=== PATIENT | female | born 1985 | race Caucasian/White ===

== ENCOUNTER 2019-06-23 18:12 | Outpatient (CLI) | payer OTHER, SELFPAY ==
[2019-06-23 19:34] LABS: Thyroid Stimulating Hormone 2.23 uIU/mL (0.36-3.74)
== END 2019-06-23 18:13 | disposition home or self-care (01) ==
PROVIDERS: PCP Family Medicine; Visit Provider Nurse Practitioner Family
DX: E03.8 Other specified hypothyroidism (principal)
CPT/HCPCS: 36415; 84443

== ENCOUNTER 2019-09-21 16:48 | Outpatient (CLI) | payer OTHER, SELFPAY ==
[2019-09-21 18:14] LABS: Thyroid Stimulating Hormone 1.98 uIU/mL (0.36-3.74)
== END 2019-09-21 16:49 | disposition home or self-care (01) ==
LOC: CHSLAB 16:49
PROVIDERS: PCP Family Medicine; Visit Provider Nurse Practitioner Family
DX: E03.8 Other specified hypothyroidism (principal)
CPT/HCPCS: 36415; 84443

== ENCOUNTER 2019-12-20 18:59 | Outpatient (CLI) | payer OTHER, SELFPAY ==
[2019-12-20 20:49] LABS: Thyroid Stimulating Hormone 1.88 uIU/mL (0.36-3.74)
== END 2019-12-20 19:00 | disposition home or self-care (01) ==
LOC: CHSLAB 19:01
PROVIDERS: PCP Nurse Practitioner Family; Visit Provider Nurse Practitioner Family
DX: E03.9 Hypothyroidism, unspecified (principal)
CPT/HCPCS: 36415; 84443

== ENCOUNTER 2020-03-10 16:23 | Outpatient (CLI) | payer OTHER, SELFPAY ==
[2020-03-10 17:48] LABS: Thyroid Stimulating Hormone Reflex 1.42 u/IU/mL (0.36-3.74)
== END 2020-03-10 16:24 | disposition home or self-care (01) ==
LOC: CHSLAB 16:26
PROVIDERS: PCP Family Medicine; Visit Provider Nurse Practitioner Family
DX: E03.9 Hypothyroidism, unspecified (principal)
CPT/HCPCS: 36415; 84443

== ENCOUNTER 2021-06-14 06:55 | Outpatient (CLI) | payer OTHER, SELFPAY ==
[2021-06-14 07:43] LABS: Beta HCG Quantitative < 1.00 mIU/mL (0-6)
[2021-06-19 05:35] LABS: Progesterone 43.1 ng/mL (***)
== END 2021-06-14 06:56 | disposition home or self-care (01) ==
LOC: CHSLAB 07:00
PROVIDERS: PCP Family Medicine
DX: N91.2 Amenorrhea, unspecified (principal)
CPT/HCPCS: 36415; 84144; 84702

== ENCOUNTER 2021-06-17 06:58 | Outpatient (CLI) | payer OTHER, SELFPAY ==
[2021-06-17 09:25] LABS: Beta HCG Quantitative < 1.00 mIU/mL (0-6)
[2021-06-20 03:57] LABS: Progesterone 37.3 ng/mL (***)
== END 2021-06-17 06:59 | disposition home or self-care (01) ==
PROVIDERS: PCP Family Medicine
DX: N91.2 Amenorrhea, unspecified (principal)
CPT/HCPCS: 36415; 84144; 84702

== ENCOUNTER 2022-05-09 07:01 | Outpatient (CLI) | payer OTHER, SELFPAY ==
[2022-05-15 07:06] LABS: Progesterone 34.5 ng/mL (***)
== END 2022-05-09 07:02 | disposition home or self-care (01) ==
LOC: CHSLAB 07:04
PROVIDERS: PCP Nurse Practitioner Family
DX: N91.2 Amenorrhea, unspecified (principal)
CPT/HCPCS: 36415; 84144; 84702

== ENCOUNTER 2022-05-12 07:02 | Outpatient (CLI) | payer OTHER, SELFPAY ==
[2022-05-15 22:17] LABS: Progesterone 31.8 ng/mL (***)
== END 2022-05-12 07:03 | disposition home or self-care (01) ==
LOC: CHSLAB 07:05
PROVIDERS: PCP Nurse Practitioner Family
DX: N91.2 Amenorrhea, unspecified (principal)
CPT/HCPCS: 36415; 84144; 84702

== ENCOUNTER 2022-05-14 07:05 | Outpatient (CLI) | payer OTHER, SELFPAY ==
[2022-05-18 06:14] LABS: Progesterone 36.2 ng/mL (***)
== END 2022-05-14 07:06 | disposition home or self-care (01) ==
PROVIDERS: PCP Nurse Practitioner Family
DX: N91.2 Amenorrhea, unspecified (principal)
CPT/HCPCS: 36415; 84144; 84702

== ENCOUNTER 2023-01-26 09:01 | Outpatient (RCR) | payer OTHER, SELFPAY ==
[2022-12-18 14:27] VITALS: BP 133/74; PULSE 97
[2023-01-26 09:58] VITALS: BP 137/73; PULSE 95
== END 2023-03-05 11:27 | disposition home or self-care (01) ==
LOC: ANHOBOP 09:01
PROVIDERS: PCP Nurse Practitioner Family; Visit Provider Obstetrics & Gynecology
DX: O36.8130 Decreased fetal movements, third trimester, not applicable or unspecified (principal); Z3A.35 35 weeks gestation of pregnancy; Z3A.41 41 weeks gestation of pregnancy
CPT/HCPCS: 59025

== ENCOUNTER 2023-01-30 05:13 | Inpatient (IN) | payer OTHER, SELFPAY ==
[2023-01-30] VITALS (62 sets, daily range): BP systolic 89–163; BP diastolic 63–104; PULSE 76–102; RESP 11–19; TEMP 36–36.6; O2SAT 94–99; BMI 42.1
[2023-01-30 05:49] LABS: Basophils Percent Auto 0.2 % (0.2-1.2); Eosinophils Absolute Auto 0.1 K/mm3 (0-0.3); Eosinophils Percent Auto 0.6 % (0-4.4); Hematocrit 36.9 % (37.0-47.0); Hemoglobin 11.8 g/dL (12.0-15.0); Immature Granulocyte Absolute 0.07 K/mm3 (0.00-0.031); Immature Granulocyte Percent A 0.8 % (0-0.5); Immature Platelet Fraction Pct 6.4 % (0.9-11.2); Lymphocytes Absolute Auto 1.27 K/mm3 (0.9-3.2); Lymphocytes Percent Auto 14.3 % (18.3-44.2); Mean Corpuscular Hemoglobin 31.7 pg (26-34); Mean Corpuscular Volume 99.2 fl (80-100); Mean Platelet Volume 10.9 fl (7.4-10.4); Monocytes Absolute Auto 0.5 K/mm3 (0.1-0.6); Neutrophils Percent Auto 78.1 % (45.5-73.1); Platelet Count Result 210 k/mm3 (150-375); Red Blood Count 3.72 M/mm3 (4.2-5.4); Red Cell Distribution Width 13.7 % (11.5-14.5); White Blood Count 8.9 K/mm3 (4.5-10.0)
--- NOTE | 2023-01-30 06:34 | PM.IMHP ---
H&P: HPI History of Present Illness Date/Time: 01/30/23 06:34 Chief Complaint: postdates . Relatively low amniotic fluid Narrative: this is a 37-year-old 2 para 1 with a previous section unfavorable cervix. Her last menstrual period was 04/07/2022, EDC is 01/19/2023, making her 41 and half weeks gestation. Ultrasound yesterday showed subjectively low fluid. She is 41 and half weeks. I suggested she have a repeat section but she insists upon induction of labor. We will gently undertaken duction with high risk for repeat section. Risks and benefits reviewed in great detail [facility] Past Medical History Medical History Hypothyroid Family History Family History Father Hypertension Grandparent Cancer Grandparent Breast cancer Lung cancer Father Hypertension Sibling Hypertension Sibling Hypertension Social History Social History Smoking status: Never smoker Substance use: never Spiritual care concerns: No Meds Home Medications and Allergies Home Medications Medication Instructions Recorded Confirmed Type vits,calcium 91-iron 28 1 pkg PO DAILY 03/15/19 12/27/22 History mg-folic 975 mcg-dha 200 mg oral pack ( + DHA) levothyroxine 75 mcg tablet 75 mcg PO DAILY 12/27/22 12/27/22 History Allergies Allergy/AdvReac Type Severity Reaction Status Date / Time No Known Allergies Allergy Verified 12/27/22 15:25 Vital Signs Vital Signs - 24 hr 01/30/23 05:38 01/30/23 05:46 01/30/23 06:01 Pulse Rate 95 96 87 Blood Pressure 158/82 H 149/81 H 143/75 H Exam Const: General: cooperative, healthy appearing and comfortable Nutritional Appearance: average body habitus Orientation/consciousness: oriented to person, oriented to place and oriented to time HENMT: Head: normal to inspection Resp: Effort & Inspection: normal respiratory effort Cardio: Rate: regular rate Rhythm: regular rhythm Heart sounds: S1 normal heart sound present and S2 normal heart sound present GI: Inspection: normal to inspection ( uterus soft and gravid) : External Female Exam: normal external appearance Speculum Exam - Vagina: normal appearance of the vagina Speculum Exam - Cervix: normal appearance of the cervix ( cervix closed. FHTs reassuring) H&P: Results Labs Labs: Short CBC 01/30/23 Range/Units 05:32 WBC 8.9 (4.5-10.0) K/mm3 Hgb 11.8 L (12.0-15.0) g/dL Hct 36.9 L (37.0-47.0) % Plt Count 210 (150-375) k/mm3 Assessment and Plan Assessment and plan (1) Post-dates : Code(s): O48.0 - Post-term Status: Acute (2) Hypothyroid: Code(s): E03.9 - Hypothyroidism, unspecified Status: Acute (3) Previous section: Code(s): Z98.891 - History of uterine scar from previous surgery Status: Acute Plan attempt at trial of labor after . Risks and benefits were reviewed in great detail. She understands she has a very poor candidate and is at high risk for repeat section
[2023-01-30] MEDS: CALCIUM CARBONATE (TUMS) 500 MG (200 MG ELEMENTAL) PO (06:42)
--- NOTE | 2023-01-30 06:49 | OBADM ---
This patient, Stefany Lyons, admitted to the OB room Labor/Delivery/Recovery 102 for observation. Patient/family oriented to hospital policies and general routines including ID bracelet, bed and alarms, visiting hours, pain management, procedures, bathroom and other care routines, personal items, smoking policy, room service/diet, and visiting hours. Patient/Family are encouraged to report perceived risks to care and to ask questions if they do not understand what they are told or what they should do.
[2023-01-30] MEDS: LACTATED RINGERS 1,000 ML 125 ML IV CONT ×2 (06:58→16:28)
[2023-01-30] MEDS: OXYTOCIN 30 UNITS/NS 500 ML 30 UNITS/500 ML BAG IV CONT (07:04)
[2023-01-30 10:57] LABS: Rapid Plasma Reagin Non-Reactive (NonReactive)
--- NOTE | 2023-01-30 17:27 | PM.OBPNLAB ---
Pain Control Date/time seen: 01/30/23 17:27 Comments: Feeling contractions Pelvic Exam Dilation (cm): 0 Effacement (%): 0 station: -3 Contractions Contraction pattern: Irregular Status status: Category l Assessment and Plan Pitocin rate (mU/min): 16 Comments: A: IUP at 41 1/2 weeks with oligohydramnios, in the setting of prior and oligohydramnios. P: She has been receiving oxytocin throughout the day today. Irregular contractions, no change to cervix. I offered continued induction of labor vs. repeat . We even discussed the possibility of going home to return for induction again in 1-2 days, and reviewed risks / benefits / alternatives. She is interested in repeat . She understands risks of surgery to include risks of anesthesia, risks of pain, infection, bleeding, blood products, thromboembolic phenomena and damage to adjacent structures such as bowel, bladder, ureters, blood vessels and nerves. She understands all these risks and elects to proceed with surgery.
--- NOTE | 2023-01-30 17:45 | WPDANESEPPF ---
Anes - Initial Pre Proc Eval Procedure: Operation Date: 01/30/23 17:15 Proposed Procedures p Section - Austin Lennon MD Date/Time: 01/30/23 17:45 Surgeon: Benjamin Saleem MD Pre Op Diagnosis: Induction of Labor Patient Data Age: 37 Gender: F Height: 1.7 m Weight: 122 kg Last Vital Signs Pulse 83 01/30/23 17:01 BP 142/82 H 01/30/23 17:01 O2 Del Method Room Air 01/30/23 06:46 Allergies Allergy/AdvReac Type Severity Reaction Status Date / Time No Known Allergies Allergy Verified 12/27/22 15:25 Home Medications Medication Instructions Recorded Confirmed Type vits,calcium 91-iron 28 1 pkg PO DAILY 03/15/19 12/27/22 History mg-folic 975 mcg-dha 200 mg oral pack ( + DHA) levothyroxine 75 mcg tablet 75 mcg PO DAILY 12/27/22 12/27/22 History ibuprofen 600 mg tablet 600 mg PO Q6H PRN cramps #30 tabs 01/30/23 Rx Laboratory Tests 01/30/23 05:32 WBC 8.9 K/mm3 (4.5-10.0) RBC 3.72 L M/mm3 (4.2-5.4) Hgb 11.8 L g/dL (12.0-15.0) Hct 36.9 L % (37.0-47.0) MCV 99.2 fl (80-100) MCH 31.7 pg (26-34) MCHC 32.0 g/dl (32-36) RDW 13.7 % (11.5-14.5) Plt Count 210 k/mm3 (150-375) MPV 10.9 H fl (7.4-10.4) Immature Gran % (Auto) 0.8 H % (0-0.5) Neut % (Auto) 78.1 H % (45.5-73.1) Lymph % (Auto) 14.3 L % (18.3-44.2) [place] % (Auto) 6.0 % (2.6-8.5) Eos % (Auto) 0.6 % (0-4.4) Baso % (Auto) 0.2 % (0.2-1.2) Lymph # (Auto) 1.27 K/mm3 (0.9-3.2) [place] # (Auto) 0.5 K/mm3 (0.1-0.6) Eos # (Auto) 0.1 K/mm3 (0-0.3) Baso # (Auto) 0.0 K/mm3 (0.0-0.1) Abs Immat Gran (auto) 0.07 H K/mm3 (0.00-0.031) Absolute Neuts (auto) 7.0 H K/mm3 (1.3-6.7) Absolute Nucleated RBC 0.0 K/mm3 (0.0-0.012) Nucleated RBC % 0.0 % (0.0-0.2) % Immature Plt Fraction 6.4 % (0.9-11.2) RPR Non-reactive (NonReactive) Blood Type O Negative Antibody Screen Negative Patient hx anesthesia problems: none Family hx anesthesia problems: none Results Review: All pre-operative results and documents have been reviewed as part of the pre-operative evaluation. REPLACED BY [facility] Past Medical History Medical History Hypothyroid Family History Family History Father Hypertension Grandparent Cancer Grandparent Breast cancer Lung cancer Father Hypertension Sibling Hypertension Sibling Hypertension Social History Social History Smoking status: Never smoker Substance use: never Lack of Transportation: No Lack of Food: Never True Current Housing: I Have Housing Concerned About Future Housing: No Difficulty Paying Gas/Electric Bills: No Difficulty Paying for Meds: No Currently Unemployed: No Education: Associate Degree Difficulty w/ Childcare or Family Care: No Spiritual care concerns: No Anes - Eval Final PreProcedure Day of Procedure 01/30/23 17:45 Patient weight: morbidly obese Heart: regular rate and rhythm Lungs: clear to auscultation and normal air movement Airway: Mallampati scale class II Neurological: alert and oriented Last oral intake: >/= 8 hours ASA classification: III Emergent: no Anesthetic plan: proceed Anesthesia type and monitoring: regional spinal and standard monitoring Results Review: All pre-operative results and documents have been reviewed as part of the pre-operative evaluation. Informed Consent: The patient's anesthetic plan and its attendant risks and benefits were discussed with the patient/family/POA. Questions were solicited and answers provided to the satisfaction of the patient/family/POA.
[2023-01-30] MEDS: ceFAZolin 3 GM/D5W 100 ML 100 ML IVPB (19:26)
[2023-01-30] MEDS: ONDANSETRON INJ 4 MG/2 ML VIAL IV PUSH (20:12)
--- NOTE | 2023-01-30 20:20 | PM.OBPRVD ---
OB - Delivery Note Procedure Delivery date: 01/30/23 Procedure: Procedures Operation Date: 01/30/23 17:15 <No data on this case meets the specified criteria> Repeat low transverse delivery Intrapartal Events: Arrest of Dilation Induction method: Per Pitocin Protocol Delivery monitor: External FHT and External Uterine Route of delivery: Specimen: Yes (cord blood) Quantitative Blood Loss (ml): 655 Anesthesia type: Spinal Disposition: PACU Complications: None Narrative: The patient was taken to the operating room where she was prepared and draped in the usual sterile fashion in dorsal supine position with a leftward tilt. She received cefazolin preoperatively. Spinal anesthesia was found to be adequate. A Pfannenstiel skin incision was made along the previous scar line and was carried through to the underlying layer of the fascia. The fascia was incised in the midline and the incision was extended laterally. The fascia was dissected free of the underlying rectus muscles. The rectus muscles were in the midline. The peritoneum was identified, tented up and entered sharply. The peritoneal incision was extended superiorly and inferiorly with good visualization of the bladder. The bladder blade was placed. The vesicouterine peritoneum was identified, tented up and entered sharply. The incision was extended laterally and the bladder flap was developed. The bladder blade was replaced. The uterus was then incised sharply in a transverse fashion along the lower uterine segment. The incision was extended laterally. The infant's head was delivered atraumatically to the sterile field, followed by the body. The nose and mouth were bulb suctioned. After a delay, the cord was clamped and cut. The was handed off the field. Cord blood was collected. The placenta was removed manually and was passed off the field. The uterus was exteriorized and cleared of all clots and debris. The uterine incision was reapproximated using 0 Monocryl in a running, locked fashion. Excellent hemostasis resulted as did excellent reapproximation of the normal anatomy. The uterus was returned the abdomen. The pelvis was irrigated copiously with warmed normal saline. Rigorous hemostasis was assured. The fascial layer was reapproximated using 0 Vicryl in a running fashion. The skin was closed with a running, subcuticular stitch of 4 0 Vicryl. Dermaflex was applied externally. Sponge, lap, needle and instrument counts were correct. The patient was taken to the recovery room in stable condition. The infant went to the nursery in stable condition. I was present and scrubbed the entire procedure. [place] Baby Date of : 01/30/23 Time of : 19:50 Weeks of gestation at delivery: 41 Infant gender: Male Weight (pounds): 8 Weight (ounces): 6 presentation: vertex Placenta delivery description: Manual Removal and Normal Configuration Cord Vessel Description: 3 Vessels score one minute: 9 score five minutes: 9
--- NOTE | 2023-01-30 20:22 | P.DS_ITS ---
DS: Admitting Diagnosis Discharge Date 02/01/23 Admitting Diagnosis IUP at 41 4/7 weeks Oligohydramnios Prior DS: Discharge Diagnosis Discharge Diagnosis (1) delivery delivered: Code(s): O82 - Encounter for delivery without indication Status: Acute OB - DS: Summary OB Procedures : None OB Procedures Intrapartum: OB Procedures: : None Peripartum Data Procedures: Procedures Operation Date: 01/30/23 17:15 <No data on this case meets the specified criteria> Time Spent with Patient Time attestation: Total time spent providing and/or coordinating discharge services: DS: Data Data Completed and Pending Labs on day of discharge: Labs from last 24 hours 01/30/23 05:32 WBC 8.9 RBC 3.72 L Hgb 11.8 L Hct 36.9 L MCV 99.2 MCH 31.7 MCHC 32.0 RDW 13.7 Plt Count 210 MPV 10.9 H Immature Gran % (Auto) 0.8 H Neut % (Auto) 78.1 H Lymph % (Auto) 14.3 L [place] % (Auto) 6.0 Eos % (Auto) 0.6 Baso % (Auto) 0.2 Lymph # (Auto) 1.27 [place] # (Auto) 0.5 Eos # (Auto) 0.1 Baso # (Auto) 0.0 Abs Immat Gran (auto) 0.07 H Absolute Neuts (auto) 7.0 H Absolute Nucleated RBC 0.0 Nucleated RBC % 0.0 % Immature Plt Fraction 6.4 RPR Non-reactive Blood Type O Negative Antibody Screen Negative Discharge Plan Discharge Attending physician on discharge: Benjamin Wesley Discharging Clinician: Austin Lennon Patient Disposition: Home, Self-Care Activity: may shower and pelvic rest Diet: regular Wound Care Instructions: incision open to air Discharge Instructions: Call or return if temperature above 100.4? F, increased abdominal pain, increased vaginal bleeding or any new problems. Stand Alone Forms: General Discharge Information Follow-up/Referrals: Benjamin Wesley MD [Physician] - 4 Weeks Discharge Medications: New ibuprofen 600 mg tablet 600 mg PO Q6H PRN (Reason: cramps) Qty: 30 0RF Continued + DHA 28 mg iron- 975 mcg-200 mg Combo Pack 1 pkg PO DAILY levothyroxine 75 mcg tablet 75 mcg PO DAILY Date of admission: 01/30/23 05:13 Primary Care Provider: Zara Estrada Admitting Provider: Benjamin Wesley Attending physician on admission: Benjamin Wesley Condition: Stable
--- NOTE | 2023-01-30 22:48 | PC.NURSE ---
Patient transferred to post room #280 per bed from labor and delivery. Support person present. Oriented to unit, room, information board, rooming in, admission packet and security measures. Patient verbalizes understanding.
[2023-01-30] MEDS: OXYTOCIN 30 UNITS/NS 500 ML 30 UNITS/500 ML BAG 125 UNITS IV CONT ×2 (23:00)
[2023-01-31 00:45] VITALS: BP 127/78; PULSE 82; RESP 18; TEMP 36.6
[2023-01-31] MEDS: DEXTROSE 5%/0.45% SOD CHL 1,000 ML 125 ML IV CONT (03:00)
[2023-01-31] MEDS: LEVOTHYROXINE SODIUM 75 MCG TABLET PO (05:21)
[2023-01-31 05:25] VITALS: BP 129/76; PULSE 84; RESP 20; TEMP 36.1
[2023-01-31 05:55] LABS: Basophils Percent Auto 0.1 % (0.2-1.2); Hematocrit 33.5 % (37.0-47.0); Hemoglobin 10.6 g/dL (12.0-15.0); Immature Granulocyte Absolute 0.06 K/mm3 (0.00-0.031); Immature Granulocyte Percent A 0.4 % (0-0.5); Lymphocytes Percent Auto 7.5 % (18.3-44.2); Mean Corpuscular HGB Conc 31.6 g/dl (32-36); Mean Corpuscular Hemoglobin 31.1 pg (26-34); Mean Corpuscular Volume 98.2 fl (80-100); Mean Platelet Volume 11.1 fl (7.4-10.4); Monocytes Absolute Auto 0.6 K/mm3 (0.1-0.6); Monocytes Percent Auto 4.3 % (2.6-8.5); Neutrophils Absolute Auto 11.8 K/mm3 (1.3-6.7); Neutrophils Percent Auto 87.7 % (45.5-73.1); Platelet Count Result 184 k/mm3 (150-375); Red Blood Count 3.41 M/mm3 (4.2-5.4); Red Cell Distribution Width 13.3 % (11.5-14.5); White Blood Count 13.4 K/mm3 (4.5-10.0)
[2023-01-31 09:00] VITALS: BP 131/61; PULSE 90; RESP 20; TEMP 36.6; O2SAT 98
--- NOTE | 2023-01-31 09:30 | PM.OBPNVD ---
OB - PN: Subj Subjective Date/time seen: 01/31/23 09:30 Narrative: Pain OK. Tolerating diet. OB - PN: Obj Data Labs 01/31/23 05:26 Labs: Laboratory Results - last 24 hr 01/30/23 01/31/23 05:32 05:26 WBC 13.4 H RBC 3.41 L Hgb 10.6 L Hct 33.5 L MCV 98.2 MCH 31.1 MCHC 31.6 L RDW 13.3 Plt Count 184 MPV 11.1 H Immature Gran % (Auto) 0.4 Neut % (Auto) 87.7 H Lymph % (Auto) 7.5 L [place] % (Auto) 4.3 Eos % (Auto) 0.0 Baso % (Auto) 0.1 L Lymph # (Auto) 1.00 [place] # (Auto) 0.6 Eos # (Auto) 0.0 Baso # (Auto) 0.0 Abs Immat Gran (auto) 0.06 H Absolute Neuts (auto) 11.8 H Absolute Nucleated RBC 0.0 Nucleated RBC % 0.0 RPR Non-reactive OB - PN A/P Plan Comments: A: POD#1, doing well. P: Would like circumcision for son - reviewed. Routine care. Exam Narrative: AVSS I/O OK ABD soft, nontender, fundus firm. Incision c/d/i. EXT nontender
[2023-01-31] MEDS: DOCUSATE SODIUM 100 MG CAPSULE PO ×2 (10:06→15:36)
--- NOTE | 2023-01-31 11:37 | WPDANLDPN2 ---
Anes-Prog Note L&D Date/Time: 01/31/23 11:37 Comfortable throughout: section Neuraxial method: spinal Epidural/Spinal procedure site: clean & non-tender Neuro status: Neuro function grossly intact. Cardiovascular status: normal Respiratory status: normal Airway patency: baseline Mental status: baseline Post-Op hydration status: normal Vital Signs: Last Vital Signs Temp 36.1 C L 01/31/23 05:25 Pulse 84 01/31/23 05:25 Resp 20 01/31/23 05:25 BP 129/76 01/31/23 05:25 Pulse Ox 97 01/30/23 22:22 O2 Del Method Room Air 01/30/23 22:22 Pain score (VAS): 0 I/O: Intake & Output 01/30/23 01/31/23 01/31/23 23:59 07:59 15:59 Intake Total 1810 Output Total 748 1550 Balance -748 260 Post-procedural complaints: none Patient feedback: Patient satisfied with anesthetic care.
--- NOTE | 2023-01-31 11:37 | WPDANLDNPN2 ---
Anes-Prog Note L&D-Neuraxial Date/Time: 01/31/23 11:37 Neuraxial medications: intrathecal PF morphine Opiod-related complaints: none Patient feedback: Patient satisfied with post-operative pain management.
[2023-01-31 12:00] VITALS: BP 133/63; PULSE 96; RESP 16; TEMP 36.6; O2SAT 99
[2023-01-31 15:08] VITALS: BP 130/60; PULSE 92; RESP 18; TEMP 36.4; O2SAT 100
[2023-01-31] MEDS: IBUPROFEN 600 MG TABLET PO ×2 (15:36→23:51)
[2023-01-31 20:15] VITALS: BP 132/73; PULSE 92; RESP 18; TEMP 37.1
[2023-02-01] MEDS: LEVOTHYROXINE SODIUM 75 MCG TABLET PO (05:25)
[2023-02-01 08:00] VITALS: BP 125/69; PULSE 97; RESP 18; TEMP 36.8; O2SAT 98
[2023-02-01] MEDS: DOCUSATE SODIUM 100 MG CAPSULE PO (08:39)
[2023-02-01] MEDS: MULTIVIT/MIN/PREN/FOL AC/IRON TABLET 1 TAB PO (08:39)
[2023-02-01] MEDS: IBUPROFEN 600 MG TABLET PO (08:39)
[2023-02-01] MEDS: LANOLIN (LANSINOH) 7.5 GM CREAM 1 APPLIC TOPICAL (08:40)
--- NOTE | 2023-02-01 09:16 | PM.OBPNVD ---
OB - PN: Subj Subjective Date/time seen: 02/01/23 09:16 Narrative: Pain OK. Tolerating diet. Would like to go home. OB - PN: Obj Data Labs 01/31/23 05:26 OB - PN A/P Plan Comments: A: POD#2, doing well. P: Home to f/u 4 weeks. Exam Narrative: AVSS ABD soft, nontender, fundus firm. Incision c/d/i. EXT nontender
--- NOTE | 2023-02-01 13:42 | PC.NURSE ---
Patient viewed the discharge video Mother & Baby Care, The First Two Weeks . Patient was given the opportunity and encouraged to ask questions. Patient verbalized understanding of information shared and has been given the mother/baby guide for home reference.
[2023-02-04 11:19] VITALS: BP 135/73; PULSE 77; RESP 18; TEMP 36.6; O2SAT 100
== END 2023-02-01 14:42 | disposition home or self-care (01) | DRG 787 ==
LOC: ANHLDR 20:24 → ANHOB2 02-01 13:01 → ANHLDR 02-03 11:07 → ANHOB2 02-03 11:07
PROVIDERS: Admitting Provider Obstetrics & Gynecology; PCP Nurse Practitioner Family; Visit Provider Obstetrics & Gynecology
PROC: 10D00Z1 Extraction of Products of Conception, Low, Open Approach (ICD-10-PCS; CPT 59514; principal; 2023-01-30 17:15)
DX: O34.219 Maternal care for unspecified type scar from previous cesarean delivery (principal); O41.03X0 Oligohydramnios, third trimester, not applicable or unspecified; O99.284 Endocrine, nutritional and metabolic diseases complicating childbirth; O62.0 Primary inadequate contractions; E03.9 Hypothyroidism, unspecified; Z3A.49 Greater than 42 weeks gestation of pregnancy; Z37.0 Single live birth; Z3A.41 41 weeks gestation of pregnancy
CPT/HCPCS: 36415; 85025; 85055; 86592; 86850; 86900; 86901; A9270; J0690; J2274; J2405; J2590; J7120

== ENCOUNTER 2023-07-30 10:23 | Outpatient (CLI) | payer OTHER, SELFPAY ==
[2023-07-30 11:34] LABS: Free T4 Free Thyroxine 0.87 ng/dL (0.76-1.46); Thyroid Stimulating Hormone 0.99 uIU/mL (0.36-3.74)
== END 2023-07-30 10:24 | disposition home or self-care (01) ==
PROVIDERS: PCP Nurse Practitioner Family; Visit Provider Nurse Practitioner Family
DX: E03.9 Hypothyroidism, unspecified (principal)
CPT/HCPCS: 36415; 84439; 84443

== ENCOUNTER 2024-09-09 11:20 | Outpatient (CLI) | payer OTHER, SELFPAY ==
--- NOTE | 2024-09-09 | CY_PTH ---
PATIENT: Stefany Davis LOC: [facility]#:[id number] AGE/SX: 38/F ROOM: RE09/09/[address]: Papo Alfaro APRN : 1985 BED: DIS: 09/09/2024 SPEC #: [id number] RECD: 09/09/24 14:48 STATUS: SUE REQ #: [id number] THIAGO: 09/09/24 00:[address]: Papo Alfaro DEPT: [facility] Cytology RECD BY: Brandie Ware MLT, ([facility]) Tissues: A - Thin Prep Non-Gyne Procedures: Thin Prep Non-ob/gyn nurse
--- OUTSIDE RECORDS SUMMARY | 2024-09-09 11:24 | XMS_ITS | Clinical Summary ---
Author Organization [facility] Address [address] [place] [address] Phone Care Team Providers Care Chief Digital Media Officer Name Role Phone Unavailable Primary Care Provider Unavailabl e Social History Tobacco Use Types Packs/Day Years Used Date Smoking Tobacco: Never Assessed Comments Unknown Sex and Gender Information Value Date Recorded Sex Assigned at Not on file Legal Sex Female 9:56 AM CDT Gender Identity Not on file Sexual Orientation Not on file Plan of Treatment Health Maintenance Due Date Last Done Comments DTAP/TDAP/TD VACCINES (1 - Tdap) 2005 HEPATITIS B VACCINES (1 of 3 - 19+ 3-dose series) 2005 HPV/Cotest (21-29) 12/31/2007 CERVICAL CANCER SCREENING 2016 HPV/Cotest (30-65) 2016 PAP SMEAR 2016 INFLUENZA VACCINE (#1) 2023 HPV VACCINES Aged Out No longer eligi ble based on patient's age to complete this topic
[2024-09-09 11:33] VITALS: BP 116/71; PULSE 88; RESP 14; TEMP 36.3; O2SAT 97; BMI 27.7
[2024-09-09] MEDS: RABIES VACCINE (RABAVERT) 2.5 UNITS VIAL IM (11:58)
== END 2024-09-09 11:21 | disposition home or self-care (01) ==
PROVIDERS: PCP Nurse Practitioner Family; Visit Provider Nurse Practitioner Family
DX: Z29.14 Encounter for prophylactic rabies immune globulin (principal); Z20.3 Contact with and (suspected) exposure to rabies; R22.41 Localized swelling, mass and lump, right lower limb; E03.9 Hypothyroidism, unspecified
CPT/HCPCS: 36415; 84443; 88112; 90471; 90675

== ENCOUNTER 2024-09-16 11:19 | Outpatient (CLI) | payer OTHER, SELFPAY ==
[2024-09-16 11:22] VITALS: BMI 27.4
--- OUTSIDE RECORDS SUMMARY | 2024-09-16 11:29 | XMS_ITS | Clinical Summary ---
Author Organization [facility] Address [address] [place] [address] Phone Care Team Providers Care Tire Assembler Name Role Phone Unavailable Primary Care Provider [...]
[2024-09-16 11:32] VITALS: BP 106/68; PULSE 68; RESP 14; TEMP 36.6; O2SAT 99
[2024-09-16] MEDS: RABIES VACCINE (RABAVERT) 2.5 UNITS VIAL IM (11:36)
== END 2024-09-16 11:20 | disposition home or self-care (01) ==
PROVIDERS: PCP Nurse Practitioner Family; Visit Provider Nurse Practitioner Family
DX: Z29.14 Encounter for prophylactic rabies immune globulin (principal); Z20.3 Contact with and (suspected) exposure to rabies
CPT/HCPCS: 90471; 90675